=== PATIENT | male | born 1995 | race Two or more races ===

== ENCOUNTER 2023-10-28 14:16 | Emergency (ER) | payer OTHER ==
[~2023-10-28] VITALS: Ht 177.8 cm; Wt 85.3 kg
[2023-10-28] MEDS ORDERED: DIPHENHYDRAMINE HCL 50 MG/ML VIAL 1ML IM STA (16:52)
[2023-10-28] MEDS ORDERED: CEFTRIAXONE SODIUM 1,000 MG VIAL IM STA (16:54)
[2023-10-28 17:18] LABS: HEMATOCRIT 43.1 % (39.0-48.0); HEMOGLOBIN 15.1 g/dL (13-16.00); MEAN CORPUSCULAR HEMOGLOBIN 29.7 pg (27.00-32.0); PLATELET COUNT 208 K/uL (150-450); RED BLOOD COUNT 5.08 M/uL (4.00-6.00); RED CELL DISTRIBUTION WIDTH 12.5 % (11.5-14.5)
[2023-10-28 17:33] LABS: PH,URINE 6.5 (5.0-8.0); URINE APPEARANCE Clear; URINE BILIRRUBIN Negative (NEGATIVE); URINE BLOOD Negative; URINE COLOR Yellow; URINE GLUCOSE Negative (NEGATIVE); URINE LEUKOCYTE Small; URINE NITRATE Negative; URINE PROTEIN Negative (NEGATIVE)
[2023-10-28 17:37] LABS: URINE BACTERIA 36.5 uL (0.0-1933); URINE EPITHELIAL CELLS 5.1 uL (0.0-38.8); URINE RBC 7.1 uL (0.0-20.8); URINE WBC 96.6 uL (0.0-23.2)
[2023-10-28 17:44] LABS: ALBUMIN 3.4 gm/dL (3.4-5.0); BILIRUBIN TOTAL 0.62 mg/dL (0.3-1.2); CALCIUM 8.6 mg/dL (8.5-10.1); GFR 88.97; GLOBULINA 4.4 G/DL (2.4-3.5); POTASSIUM 4.39 mEq/L (3.5-5.1); TOTAL PROTEIN 7.8 gm/dL (6.4-8.2)
== END 2023-10-28 18:57 | disposition home or self-care (01) ==
LOC: ER 14:17
PROVIDERS: General Practice
DX: R21 Rash and other nonspecific skin eruption (principal); A60.00 Herpesviral infection of urogenital system, unspecified; Z20.822 Contact with and (suspected) exposure to COVID-19
CPT/HCPCS: 36415; 71045; 96372; 99283; J0696; J1200